=== PATIENT | male | born 1960 | race Caucasian/White ===

== ENCOUNTER 2018-05-27 11:43 | Outpatient (CLI) | payer OTHER ==
--- NOTE | 2018-05-27 12:52 | RAD ---
TWO VIEWS OF THE CHEST: Comparison: None. History: Arthropathic psoriasis. FINDINGS: Two views of the chest show normal sized cardiomediastinal silhouette. There is no evidence of consol idation, mass, or pleural effusion. The bones are unremarkable. IMPRESSION: No evidence of acute cardiopulmonary disease. POS: [facility]
--- NOTE | 2018-05-27 14:26 | RAD ---
TWO VIEWS LUMBOSACRAL SPINE: Comparison: 03-10-07 History: Lumbar disc repair in 2005. Low back pain. FINDINGS: Two views of the lumbosacral spine intervertebral disc space narrowing at L5-S1 with surrounding oste ophytes. The intervertebral bodies and intervertebral discs demonstrate normal height and alignment w ithout fracture or subluxation. No other degenerative changes are seen. IMPRESSION: Degenerative changes at L5-S1. POS: [facility]
== END 2018-05-27 11:44 | disposition home or self-care (01) ==
LOC: BICRAD 11:43
PROVIDERS: ATTEND Internal Medicine Rheumatology
DX: L40.50 Arthropathic psoriasis, unspecified (principal); M47.817 Spondylosis without myelopathy or radiculopathy, lumbosacral region
CPT/HCPCS: 71046; 72100